=== PATIENT | female | born 1980 | race Caucasian/White ===

== ENCOUNTER 2020-12-30 20:56 | Emergency (ER) | payer MEDICAID, OTHER ==
[2020-12-31 01:08] VITALS: BP 134/80; PULSE 99
--- NOTE | 2020-12-31 09:22 | PCM.SN.2 ---
- Free Text/Narrative Note: Patient is a 40 YO at approximately 15 weeks AOG presented to the ED because she noticed leaking of clear fluid from her vaginal area and she just want to be checked. I explained to the patient that we don't do OB here anymore and all what we can do is check her VS just to be sure she is stable and safe for transfer. I did talk to the OB Dr perfusionist Dr Locke who want patient to go to the ER in [place] to be evaluated. I did offer ambulance transfer but patient and prefer her to go by a private vehicle.
== END 2020-12-30 21:20 ==
LOC: FB.ED 20:56
DX: O42.912 Preterm premature rupture of membranes, unspecified as to length of time between rupture and onset of labor, second trimester (principal); Z3A.15 15 weeks gestation of pregnancy
CPT/HCPCS: 99284